=== PATIENT | female | born 1965 | race Caucasian/White ===

== ENCOUNTER → 2017-06-18 08:22 | Outpatient (CLI) | payer OTHER, SELFPAY ==
--- NOTE | 2017-06-18 08:29 | US_ITS ---
HISTORY: ITS.REASON: ABDOMINAL PAIN ORDERING PHYSICIAN: Hari Dan MD PATIENT AGE: 52 years COMPARISON: None FINDINGS: PANCREAS: Unremarkable. No obvious mass or abnormal fluid collection. No ductal dilatation LIVER: No focal liver lesions demonstrated. Homogeneous echogenicity. No intrahepatic biliary ductal dilatation evident RIGHT KIDNEY: Unremarkable. Normal size and echogenicity. No hydronephrosis GALLBLADDER: No gallstones, gallbladder wall thickening, pericholecystic fluid, or biliary dilatation. Comment tail artifact is present in the fundus of the gallbladder and may be seen with adenomyomatosis. IMPRESSION: 1. No gallstones gallbladder wall thickening or pericholecystic fluid. 2. Comment Halo artifact in gallbladder which may be seen with adenomyomatosis
== END ==
PROVIDERS: Family Provider Family Medicine; PCP Family Medicine; Visit Provider Family Medicine
DX: R10.11 Right upper quadrant pain (principal)
CPT/HCPCS: 76705

== ENCOUNTER → 2017-06-28 09:44 | Outpatient (CLI) | payer OTHER, SELFPAY ==
--- NOTE | 2017-06-28 09:48 | NM_ITS ---
NM hepatobiliary w pharm HISTORY: Right upper quadrant pain, ITS.REASON: RUQ PAIN ORDERING PHYSICIAN: Hari Dan MD PATIENT AGE: 52 years COMPARISON: None DOSE: 8.57 mCi technetium Choletec Fatty meal with ensure. No pain reported with fatty meal FINDINGS: Homogeneous activity is present within the hepatic parenchyma. Activity is present in the gallbladder by 10 minutes. Activity is present in the small bowel by ingestion of the fatty meal. The gallbladder ejection fraction is calculated to be 74% The patient did not report pain or other symptoms during the fatty meal ingestion. IMPRESSION: Unremarkable hepatobiliary scan and gallbladder ejection fraction. No evidence of common or cystic duct obstruction with normal gallbladder ejection fraction
== END ==
PROVIDERS: Family Provider Family Medicine; PCP Family Medicine; Visit Provider Family Medicine
DX: R10.11 Right upper quadrant pain (principal)
CPT/HCPCS: 78227; A9537

== ENCOUNTER → 2019-02-13 09:30 | Outpatient (CLI) | payer OTHER, SELFPAY ==
--- NOTE | 2019-02-13 09:33 | MM_ITS ---
PROCEDURE: MM DIG SCREENING MAMM BI W/CAD CLINICAL INDICATION: SCREENING There is a history of breast cancer in patient's sister diagnosed in her early 40s. COMPARISON: This is a baseline exam TECHNIQUE: Standard CC and MLO images were obtained. R2 CAD reviewed. FINDINGS: Moderate somewhat heterogenic fibroglandular densities are seen in the central portions of both breasts. There is an asymmetric nodular density central portion left breast. Return for spot compression MLO and CC views and ultrasound for additional evaluation. There are no suspicious microcalcifications in either breast. There are small nodes in both axilla. IMPRESSION: Moderate breast density with asymmetric nodular lesion central portion left breast BI-RAD Category: 0 Need Additional Imaging Evaluation FOLLOW-UP: IMM Immediate Follow-up Recommended (A letter has been sent to the patient regarding results of the study.) Dictated by: Dr. Bernabe Young MD 02/17/2019 10:[address] Bernabe Young MD in [place] 02/17/2019 10:35
--- NOTE | 2019-02-13 09:34 | XR_ITS ---
PROCEDURE: XR DEXA AXIAL SKELETON CLINICAL HISTORY: POST MENOPAUSAL COMPARISON: No exams were available for comparison FINDINGS: Mean hip density has a T-score of -0.8 with a bone density of 0.926 grams/centimeter sq. L1-L4 density is 1.174 grams/centimeters sq with a T-score of 0.0. IMPRESSION: Normal bone density with low fracture risk. Recommend follow-up exam in 2 years Dictated by: Valentin Huang MD 02/13/2019 16:50 Electronically signed by Valentin Huang MD in [place] 02/13/2019 16:50
== END ==
PROVIDERS: PCP Family Medicine; Visit Provider Family Medicine
DX: Z12.31 Encounter for screening mammogram for malignant neoplasm of breast (principal); Z13.820 Encounter for screening for osteoporosis; Z78.0 Asymptomatic menopausal state
CPT/HCPCS: 77067; 77080

== ENCOUNTER → 2019-02-26 13:59 | Outpatient (CLI) | payer OTHER, SELFPAY ==
--- NOTE | 2019-02-26 14:07 | US_ITS ---
PROCEDURE: MM DIG MAMM DX UNILAT LT CAD CLINICAL INDICATION: ABN MAMM COMPARISON: MM DIG SCREENING MAMM BI W/CAD from 02/13/2019 US BREAST LT COMPLETE from 02/26/2019 TECHNIQUE: Spot-compression views along with left breast ultrasound FINDINGS: Average fibroglandular tissue. Spot compression views were obtained. There is a persistent asymmetric density in the superior left breast at 13 x 8 mm. There is a persistent nodular density in the inferior retroareolar region measuring approximately 8 mm.. Left breast ultrasound: There is an oval 1 x 0.6 cm hypoechoic nodule at 2 o'clock. This is parallel to the chest wall with and is well-circumscribed with some low level internal echoes. This may be due to fibroadenoma. In the retroareolar region there is ductal ectasia and probable debris-filled cyst in the retroareolar area measuring 3-4 mm. This does appear to connect to the dilated ducts. IMPRESSION: There is an oval hypoechoic nodule at 2 o'clock which may be due to a fibroadenoma. Ultrasound-guided core biopsy suggested. In the retroareolar region there is a hypoechoic 3-4 mm nodule which appears to be connected to dilated ducts and could represent debris-filled cyst. Suggest fine-needle aspiration for confirmation BI-RAD Category: 4 Suspicious Abnormality - Biopsy Considered FOLLOW-UP: BIO Biopsy Recommended (A letter has been sent to the patient regarding results of the study.) Dictated by: Valentin Huang MD 02/27/2019 13:07 Electronically signed by Valentin Huang MD in [place] 02/27/2019 13:07
== END ==
PROVIDERS: PCP Family Medicine; Visit Provider Family Medicine
DX: R92.8 Other abnormal and inconclusive findings on diagnostic imaging of breast (principal)
CPT/HCPCS: 76641; 77065

== ENCOUNTER → 2019-07-09 16:51 | Outpatient (CLI) | payer OTHER, SELFPAY | PROVIDERS: PCP Family Medicine; Visit Provider Family Medicine | DX: R00.2 Palpitations (principal) | CPT/HCPCS: 93225; 93226 ==

== ENCOUNTER → 2019-07-21 06:52 | Outpatient (CLI) | payer OTHER, SELFPAY ==
--- NOTE | 2019-07-21 | CA_ITS ---
APPROVED REPORT Exam: Exercise Treadmill Technologist: Kay Penny Ht: 5 ft 1 in Wt: 160 lbs BSA: 1.72 m2 HR: 74 bpm BP: 134/75 mmHg Indications: Precordial pain, Palpitations Medical History Medications: Hydrocodone,,,,, ClonAZEPAM,,,,, Stress Test Details Test: LEXISCAN HR Resting HR: 79 bpm Max Heart Rate (APMHR): 168 bpm Max HR Achieved: 115 bpm Target HR (85% APMHR): 142 bpm % of APMHR: 68 Recovery HR: 96 bpm BP Resting BP: 134.0/75.0 mmHg Max BP: 134.0/75.0 mmHg Recovery BP: 119.0/71.0 mmHg ECG Clinical Exercise duration: 04:01 min Highest Stage Achieved: Exercise capacity: 1.0 METs Stress ECG Conclusion Resting ECG: Normal sinus rhythm. Symptoms: Chest pain/pressure, shortness of air, mild nausea, malaise. Arrhythmias/Ectopy: None ST-T Changes: No significant changes. Conclusion: Unremarkable Lexiscan stress. Myoview images reported separately. Electronically signed by : Immanuel Watson, 07/21/2019 21:12:06
--- NOTE | 2019-07-21 06:57 | NM_ITS ---
APPROVED REPORT Exam: Nuclear Stress Test Indication: Chest pain, SOB, HTN, High cholesterol, Former tobacco use, Family history Patient Location: Outpatient Stress Tech: Kay Penny NM Tech:Mary Puentes, ARRT, RT (R)(N) Ht: 5 ft 1 in Wt: 160 lbs Bra Size: 36C HR: 74 bpm BP: 134/75 mmHg BSA: 1.72 m2 BMI: 30.2 History: Chest pain, SOB, HTN, High cholesterol, Former tobacco use, Family history Procedure: Patient received a 0.4 mg of intravenous Lexiscan, resting heart rate 74 bpm, resting blood pressure 134/75 mmHg, with Lexiscan maximum heart rate achived was 112 bpm which is Less than 85 % of the maximum predicted heart rate and blood pressure was 125/78 mmHg. Electrocardiogram Resting electrocardiogram showed sinus rhythm, with Lexiscan there is less than 1.[address] segment depression noted from the baseline EKG. The EKG portion of the Lexiscan Myoview is nondiagnostic. Cardiac Stress and Resting SPECT Images: Cardiac Stress and Resting SPECT images were obtained using technetium 99m Myoview 30.3 mCi stress and 10.08 mCi at rest. Gated SPECT for analysis of segmental wall motion and calculation of the ejection fraction also done. Cardiac stress and resting SPECT images show uniform myocardial activity without segmental perfusion abnormality, computer derived ejection fraction is over 65% with no regional wall motion abnormality, right ventricle is normal size and contractility. Conclusion: 1. The EKG portion of the Lexiscan Myoview is nondiagnostic. 2. No scintigraphic evidence of reversible ischemia seen, computer derived ejection fraction is over 65% with no regional wall motion abnormality, right ventricle is normal size and contractility. 3. Normal Lexiscan Myoview study. Electronically signed by : Immanuel Watosn, 07/21/2019 21:14:18
--- NOTE | 2019-07-21 07:25 | CA_ITS ---
APPROVED REPORT EXAM: Comprehensive 2D, Doppler, and color-flow Echocardiogram Chronic Disease Epidemiologist: Penelope Hitchcock RT(R) Ht: 5 ft 1 in Wt: 150lbs BSA: 1.67 BP: 161/96 mmHg Indications: CP, smoker, Palpitations, SOB, dizziness, presyncope 2D Dimensions LVOT 1.82 cm (M/F) 1.5-2.5 M-Mode Dimensions RVDd 1.47 cm (0.9-2.6) LVDd 5.17 cm (3.5-5.7) LVDs 3.80 cm (3.5-5.7) IVSd 0.86 cm (0.6-1.1) PWd 0.83 cm (0.6-1.1) EF (Teich) 51.50% FS 26.50% EDV (Teich) 127.80 mL ESV (Teich) 62.00 mL LV Diastology E/A Ratio 0.70 Mitral Valve MV A Velocity 81.00 (40-130 cm/s) Left Ventricle Left atrium is mildly enlarged, left ventricle is normal size, visually estimated ejection fraction 50% with no regional wall motion abnormality, endocardial surfaces are very poorly visualized, grade 1 diastolic dysfunction seen without tissue Doppler evidence of raise left atrial pressure. Right Ventricle Right atrium and right ventricular normal size and contractility. Aortic Valve Aortic valve is minimally thickened and fibrosed. There is no aortic stenosis or aortic insufficiency. Mitral Valve Mitral valve is grossly normal, there is mild mitral regurgitation. Tricuspid Valve Tricuspid valve is grossly normal, there is mild tricuspid regurgitation, tricuspid regurgitation jet velocity is inadequate for calculation of the right ventricular systolic pressure. Pulmonic Valve Pulmonic valve is poorly visualized. Great Vessels Aortic root is normal size. Pericardium No significant pericardial effusion noted. Conclusion 1. Technically difficult study because of the patient fact in poor acoustic windows 2. Normal left ventricular size, visually estimated ejection fraction 50% with no regional wall motion abnormality, grade 1 diastolic dysfunction seen without tissue Doppler evidence of raise left atrial pressure. 3. No significant pericardial effusion noted. 4. Mild mitral and tricuspid regurgitation. Electronically signed by : Immanuel Watson, 07/22/2019 05:43:47
--- NOTE | 2019-07-21 08:48 | HMH.ITSHM ---
Current Home Medications as stated by this patient Kena Boyd or [employer] representatives. []HYDROCODONE CLONAZEPAM
== END ==
PROVIDERS: PCP Family Medicine; Visit Provider Family Medicine
DX: R07.2 Precordial pain (principal); R00.2 Palpitations
CPT/HCPCS: 78452; 93017; 93306; A9502; J2785

== ENCOUNTER → 2020-07-21 08:32 | Outpatient (CLI) | payer OTHER, SELFPAY ==
--- NOTE | 2020-07-21 08:35 | US_ITS ---
PROCEDURE: US ABDOMEN LIMITED CLINICAL INDICATION: RUQ PAIN COMPARISON: US ABD US abdomen limited from 06/18/2017 FINDINGS: PANCREAS: Unremarkable. No obvious mass or abnormal fluid collection. No ductal dilatation LIVER: No focal liver lesions demonstrated. Homogeneous echogenicity. No intrahepatic biliary ductal dilatation evident. There is appropriate direction of blood flow within a non dilated portal vein RIGHT KIDNEY: Unremarkable. Normal size and echogenicity. No hydronephrosis GALLBLADDER: No gallstones, gallbladder wall thickening, pericholecystic fluid, or biliary dilatation. Comet tail artifact noted within the gallbladder fundal area suggesting cholesterolosis. IMPRESSION: No shadowing stones of the gallbladder. Comet tail artifact noted in the fundus which may be seen with cholesterolosis/cholesterol polyp Dictated by: Valentin Huang MD 07/21/2020 18:19 Valentin Huang MD in [place] 07/21/2020 18:19
== END ==
PROVIDERS: PCP Family Medicine; Visit Provider Family Medicine
DX: R10.11 Right upper quadrant pain (principal)
CPT/HCPCS: 76705

== ENCOUNTER 2020-10-17 12:45 | Emergency (ER) | payer OTHER, SELFPAY ==
[2020-10-17 12:50] VITALS: BP 138/86; PULSE 105; RESP 18; TEMP 36.9; O2SAT 98; BMI 33.1
[2020-10-17 12:52] VITALS: BP 138/86; PULSE 105; RESP 18; TEMP 36.9; O2SAT 98; BMI 32.9
--- NOTE | 2020-10-17 13:04 | XR_ITS ---
PROCEDURE INFORMATION: Exam: XR Right Forearm Exam date and time: 10/17/2020 1:04 PM Age: 55 years old Clinical indication: Injury or trauma; Blunt trauma (contusions or hematomas); Arm, lower; Right; Injury date: 10-17-20; Injury details: Fall, abrasion below elbow TECHNIQUE: Imaging protocol: XR Right forearm. Views: 2 views. COMPARISON: No relevant prior studies available. FINDINGS: Bones/joints: There is no evidence of acute fracture. There is no evidence of joint malalignment or dislocation. Soft tissues: There are no soft tissue masses or fluid collections. IMPRESSION: 1. No evidence of acute fracture. 2. No evidence of acute dislocation.
--- NOTE | 2020-10-17 13:04 | XR_ITS ---
PROCEDURE INFORMATION: Exam: XR Right Wrist Exam date and time: 10/17/2020 1:04 PM Age: 55 years old Clinical indication: Injury or trauma; Blunt trauma (contusions or hematomas); Wrist; Right; Injury date: 10-17-20; Injury details: Fall, pain ulna sie TECHNIQUE: Imaging protocol: XR Right wrist. Views: 3 or more views. COMPARISON: No relevant prior studies available. FINDINGS: Bones/joints: There is no evidence of acute fracture. There is no evidence of joint malalignment or dislocation. Soft tissues: There are no soft tissue masses or fluid collections. IMPRESSION: 1. No evidence of acute fracture. 2. No evidence of acute dislocation.
--- NOTE | 2020-10-17 13:04 | XR_ITS ---
PROCEDURE INFORMATION: Exam: XR Right Hand Exam date and time: 10/17/2020 1:04 PM Age: 55 years old Clinical indication: Injury or trauma; Blunt trauma (contusions or hematomas); Hand; Right; Injury date: 10-17-20; Injury details: Fall, C/O pain 4th and 5th digits TECHNIQUE: Imaging protocol: XR Right hand. Views: 3 or more views. COMPARISON: No relevant prior studies available. FINDINGS: Bones/joints: There is no evidence of acute fracture. There is no evidence of joint malalignment or dislocation. Soft tissues: There are no soft tissue masses or fluid collections. IMPRESSION: 1. No evidence of acute fracture. 2. No evidence of acute dislocation.
--- NOTE | 2020-10-17 13:08 | HMH.EDUTC ---
[facility] [place] Clinical Impression: Left upper arm injury Qualifiers: Encounter type: initial encounter Qualified Code(s): S49.92XA - Unspecified injury of left shoulder and upper arm, initial encounter Fall Qualifiers: Encounter type: initial encounter Qualified Code(s): W19.XXXA - Unspecified fall, initial encounter Left elbow contusion Qualifiers: Encounter type: initial encounter Qualified Code(s): S50.02XA - Contusion of left elbow, initial encounter Disposition: Home, Self-Care Condition on Discharge: Good Instructions: DI for Elbow Sprain Additional Instructions: Rest the extremity, apply ice for 15 minutes as tolerated three or four times per day, Wear the russ wrap for compression, Elevate the extremity as tolerated while you are resting. Take ibuprofen for pain. I sent in a prescription to your pharmacy. Follow up with Dr. Hansen (orthopedics). Sometimes there can be fractures that don't show up well on the first set of x-rays. So, you should follow up if you continue to have symptoms. I put in a referral but you need to call his office and schedule an appointment. Follow up with your regular doctor. GO TO THE ER FOR ANY WORSENING SYMPTOMS Prescriptions: Ibuprofen [Ibuprofen 600mg Tablet] 600 mg PO Q6HP PRN #30 tab PRN Reason: Mild Pain Transmission Status: Received by [facility] Referrals: Hari Dan MD [Primary Care Provider] - Alexis Hansen MD [Staff Physician] - Time of Disposition: 14:45 Medical Decision Making - Medical Records Medical records reviewed: No: I reviewed the patient's medical records. - Marty Inquiry Pt receiving controlled substance: No Vital Signs: 10/17/20 12:50 10/17/20 12:52 10/17/20 14:43 Temperature 98.5 F 98.5 F 98.5 F Temperature Source Oral Oral Pulse Rate 105 H Pulse Rate [Left Radial] 105 H 105 H Respiratory Rate 18 18 18 Blood Pressure 138/86 Blood Pressure [Left Arm] 138/86 138/86 Blood Pressure Mean [Left Arm] 103 103 Blood Pressure Source [Left Arm] Automatic Cuff Automatic Cuff Blood Pressure Position [Left Arm] Sitting Sitting 02 Sat by Pulse Oximetry 98 98 Oxygen Delivery Method Room Air Room Air - Radiology Data #1 Image(s): Elbow Image Reviewed: Yes I reviewed the patient's radiology image, Yes I have reviewed radiologist's interpretation Preliminary Findings: Normal/NAD, No Fracture Seen #2 Image(s): Forearm Image Reviewed: Yes I reviewed the patient's radiology image, Yes I have reviewed radiologist's interpretation Preliminary Findings: No Fracture Seen PROCEDURE INFORMATION: Exam: XR Right Forearm Exam date and time: 10/17/2020 1:04 PM Age: 55 years old Clinical indication: Injury or trauma; Blunt trauma (contusions or hematomas); Arm, lower; Right; Injury date: 10-17-20; Injury details: Fall, abrasion below elbow TECHNIQUE: Imaging protocol: XR Right forearm. Views: 2 views. COMPARISON: No relevant prior studies available. FINDINGS: Bones/joints: There is no evidence of acute fracture. There is no evidence of joint malalignment or dislocation. Soft tissues: There are no soft tissue masses or fluid collections. IMPRESSION: 1. No evidence of acute fracture. 2. No evidence of acute dislocation. [facility] [place] HPI - General Stated complaint: a/o 10/16 fell right arm injury Time Seen by Provider: 10/17/20 13:08 Mode of Arrival: Ambulatory Source of Information: Patient Limitations: No Limitations Description of Symptoms (Recalled from Triage Doc. by RN): pt c/o R elbow pain down to R hand, pt reports she fell going up in her steps lastnight. Pt denies LOC. Swelling noted to area just below R elbow. - History of Present Illness Provider Complaint: She states that she was walking up some steps last night when she slipped and fell. She came down on her rigth elbow
--- NOTE | 2020-10-17 13:11 | XR_ITS ---
PROCEDURE INFORMATION: Exam: XR Right Elbow Exam date and time: 10/17/2020 1:11 PM Age: 55 years old Clinical indication: Injury or trauma; Blunt trauma (contusions or hematomas); Right; Injury date: 10-17-20; Injury details: Fall, abrasion below elbow; Additional info: Fall, elbow pain TECHNIQUE: Imaging protocol: XR Right elbow. Views: 3 or more views. COMPARISON: No relevant prior studies available. FINDINGS: Bones/joints: There is no evidence of acute fracture. There is no evidence of joint malalignment or dislocation. Soft tissues: There are no soft tissue masses or fluid collections. IMPRESSION: 1. No evidence of acute fracture. 2. No evidence of acute dislocation.
[2020-10-17 14:43] VITALS: BP 138/86; PULSE 105; RESP 18; TEMP 36.9; O2SAT 98
== END 2020-10-17 14:54 | disposition home or self-care (01) ==
PROVIDERS: Emergency Provider Nurse Practitioner Family; PCP Family Medicine
DX: S49.91XA Unspecified injury of right shoulder and upper arm, initial encounter (principal); S50.01XA Contusion of right elbow, initial encounter; W10.9XXA Fall (on) (from) unspecified stairs and steps, initial encounter; Y92.019 Unspecified place in single-family (private) house as the place of occurrence of the external cause; F41.8 Other specified anxiety disorders; F17.210 Nicotine dependence, cigarettes, uncomplicated
CPT/HCPCS: 73080; 73090; 73110; 73130; 99202; G0463

== ENCOUNTER → 2021-09-13 08:55 | Outpatient (CLI) | payer OTHER, SELFPAY ==
--- NOTE | 2021-09-13 09:03 | MR_ITS ---
FINAL REPORT CLINICAL HISTORY: CERVICALGIA, NECK PAIN FINDINGS: Multi planar MR imaging was obtained of the cervical spine. There is abnormal decreased signal throughout the cervical discs. The vertebrae are of normal height. There is no malalignment. The cervical cord demonstrates normal signal and configuration. C2-C3: Mild diffuse disc bulge is present with mild bilateral neural foraminal narrowing. C3-C4: There is no evidence of significant disc bulge or protrusion. There is no significant facet hypertrophy. C4-C5: There is no evidence of significant disc bulge or protrusion. There is no significant facet hypertrophy. C5-C6: Mild diffuse disc bulge is present. There is a left posterolateral disc protrusion moderate left neural foraminal narrowing. C6-C7: Midline and left paracentral disc protrusion is present. There is mild compromise of the left side of the spinal canal. C7-T1: There is no evidence of significant disc bulge or protrusion. There is no significant facet hypertrophy. IMPRESSION: Midline left paracentral disc protrusion at C6-7 results in moderate compromise of the left side of the spinal canal. Reviewed, Interpreted and Dictated by Rayo Figueroa MD Transcribed by Alee Feliz Authenticated by Rayo Figueroa MD on 09/13/2021 01:06:17 PM [facility]
--- NOTE | 2021-09-13 09:03 | MR_ITS ---
FINAL REPORT CLINICAL HISTORY: DJD OF LUMBAR SPINE, RADICULAR PAIN OF LOWER EXTREMITY BILATERAL, LOW BACK PAIN FINDINGS: Multiplanar MR imaging of the lumbar spine was performed without contrast. On the sagittal T2-weighted images, there is abnormal decreased signal at L4-5 and L5-S1. There is anterolisthesis of L5 over in relation to L4 and S1. There is a rounded focus of increased signal in the L2 vertebra consistent with hemangioma. L1-2: There is no significant canal stenosis or neural foraminal narrowing. L2-3: There is no significant canal stenosis or neural foraminal narrowing. L3-4: There is no significant canal stenosis or neural foraminal narrowing. L4-5: Moderate diffuse disc bulge is present. There is mild to moderate bilateral neural foraminal narrowing. L5-S1: Large disc bulge is present with high-grade bilateral neural foraminal narrowing accentuated by spondylolisthesis. There is a complex lobular mass in the mid pelvis which is incompletely visualized but measures at least 12 cm in greatest dimension. Findings may be related to a fibroid uterus. There is also a benign appearing cyst in the lower pole of the left kidney measuring 2.8 cm. The IMPRESSION: Large disc bulge at L5-S1 with high-grade bilateral neural foraminal narrowing. Complex lobular mass in the mid pelvis as detailed above. Recommend gynecologic evaluation. Reviewed, Interpreted and Dictated by Rayo Figueroa MD Transcribed by Alee Feliz Authenticated by Rayo Figueroa MD on 09/13/2021 11:52:34 AM [facility]
== END ==
PROVIDERS: PCP Family Medicine; Visit Provider Family Medicine
DX: M47.816 Spondylosis without myelopathy or radiculopathy, lumbar region (principal); M54.16 Radiculopathy, lumbar region
CPT/HCPCS: 72141; 72148; 76376

== ENCOUNTER → 2021-09-22 13:34 | Outpatient (CLI) | payer OTHER, SELFPAY ==
--- NOTE | 2021-09-22 13:39 | US_ITS ---
FINAL REPORT TECHNIQUE: Transabdominal images of the pelvis were obtained. CLINICAL HISTORY: PELVIC MASS seen on mri-- uterus removed FINDINGS: The uterus is has been removed. The left ovary is not visualized. There is a large right adnexal mass that is predominantly solid with cystic components. Mass measures 11.8 x 6.6 cm and probably arises from the right ovary. IMPRESSION: Large right adnexal mass presumably arising from the right ovary. Highly recommend gynecologic evaluation. Malignancy cannot be excluded. Reviewed, Interpreted and Dictated by Rayo Figueroa MD Transcribed by Ortiz Salgado Authenticated by Rayo Figueroa MD on 09/22/2021 04:23:24 PM [facility]
== END ==
PROVIDERS: PCP Family Medicine; Visit Provider Family Medicine
DX: R19.00 Intra-abdominal and pelvic swelling, mass and lump, unspecified site (principal)
CPT/HCPCS: 76856